=== PATIENT | male | born 1995 | race Caucasian/White ===

== ENCOUNTER 2023-05-12 01:37 | Emergency (ER) | payer SELFPAY ==
[~2023-05-12] VITALS: Ht 175.3 cm; Wt 102.6 kg
[2023-05-12 01:45] VITALS: BP 122/83; PULSE 114; RESP 18; TEMP 98.9; O2SAT 96
== END 2023-05-12 04:08 | disposition left against medical advice (07) ==
LOC: ER 01:37
DX: R21 Rash and other nonspecific skin eruption (principal); Z53.21 Procedure and treatment not carried out due to patient leaving prior to being seen by health care provider
CPT/HCPCS: 99281